=== PATIENT | female | born 2005 | race Caucasian/White ===

== ENCOUNTER 2025-06-30 20:24 | Emergency (ER) | payer OTHER, SELFPAY ==
[2025-06-30 20:28] VITALS: BP 113/63
[2025-06-30 20:36] VITALS: BMI 20.8
--- NOTE | 2025-06-30 21:10 | ED.GENMED ---
History of Present Illness
General
Chief Complaint: DVT/Possible Blood Clot
Source: patient
Exam Limitations: none
Time Seen by Provider: 06/30/25 20:34
Nursing documentation reviewed up to this point in time: agreed with
History of Present Illness
History of Present Illness:
see MDM
Phy Exam
Physical Exam
Physical Exam:
GENERAL: Alert , in no apparent distress
EYE: pupils equal and reactive
NECK: Supple
ENT: o/p clr, mmm.
CARDIAC: Regular rate and rhythm . 2+ dp pulses
perfused feet
cap refill intact
LUNGS: Clear breath sounds bilaterally, no acute respiratory distress, no wheezes/rales/rhonchi
ABDOMEN: Soft, without focal tenderness, no r/g, no cvat, normal bowel sounds
NEUROLOGICAL: Alert and oriented, no focal neuro deficits
SKIN: Warm and dry, skin intact.
superficial vein slightly tender/promient; but not bulging that is located medial anlke
MUSCULOSKELETAL: No edema, well perfused. neg denis's sign
slightly swollen ankle vein
ankle joint nomral
painless ROM
normal compartments
notnender
full painless ROM
PSYCH: Normal and appropriate interaction.
Course
Orders/Labs/Results
Orders:
Orders
06/30/25 20:33
Venous Doppler Lwr Ext Left [US Periph Venous LOWER Ext LT] Urgent
Comment:
Reason For Exam: left leg swelling, long flght
06/30/25 22:19
Aspirin Chewable [Low Strength Aspirin] 81 mg PO NOW STA
Vital Signs
Initial and Last Documented VS:
Initial Vital Signs
Temp Pulse Resp BP Pulse Ox
36.8 C 61 16 113/63 100
06/30/25 20:28 06/30/25 20:28 06/30/25 20:28 06/30/25 20:28 06/30/25 20:28
Last Documented Vital Signs
Temp Pulse Resp BP Pulse Ox
36.8 C 61 16 113/63 100
06/30/25 20:28 06/30/25 20:28 06/30/25 20:28 06/30/25 20:28 06/30/25 21:11
MDM/Problems Addressed
Differential Diagnosis Includes:
see MDM
MDM/Problems Addressed:
Note:
CHIEF COMPLAINT(S)
Swelling and numbness in foot, with shooting pains in the leg.
HISTORY OF PRESENT ILLNESS
The patient, a female whose age was not provided, presents with concerns about numbness and swelling in her foot, which began after a flight to [facility] approximately two weeks ago on 06/19. During the flight, she wore compression stockings and
experienced numbness in her feet. Upon arrival, she noticed swelling and numbness around the ankles, especially over a nedial ankle vein, which she described as swollen and tender but she was still able to walk around and didn't pay much attention
to it. . Upon returning from [facility] about a week ago on 06/25, during which she did not wear compression stockings, she noted a worsening of the numbness when she got off the plane, feeling numb medially in the ankle region and into the calf on the
medial side. The patient visited a print inspector 2 days ago, who suggested the condition was likely not serious but recommended an ultrasound. Since today, the patient reports the onset of sharp, shooting pains in her leg, but she is still able to
exercise and walk around without difficulty.
These symptoms occur sporadically and are accompanied by random swelling. She notes that while the swelling can be observed, it sometimes subsides. The patient is concerned about a potential venous issue such as a deep vein thrombosis or
superficial thrombophlebitis. She is on an estrogen-containing medication for control and spironolactone.
PAST MEDICAL HISTORY
The patient takes spironolactone.
REVIEW OF SYSTEMS
- Neurological: Intermittent sharp, shooting pain in the leg; numbness and tingling in the foot.
- Cardiovascular: Swelling in the foot and around the vein.
- Musculoskeletal: No pain when bending over; mobility unaffected despite discomfort.
PHYSICAL EXAM
- Neurological: Asked to wiggle toes; able to push down and pull back without issues.
- Extremities: Warm and well-perfused without discoloration; no pain on ankle movement.
- Nursing notes reviewed and vital signs reviewed.
PLAN
The patient will undergo an ultrasound to rule out a clot as the cause of symptoms. There is consideration of a superficial vein issue, potentially a small clot in a superficial vein or a varicose vein. Treatment with warm compresses and low-dose
aspirin has been suggested, pending results. The patient has an ultrasound scheduled for Friday, and it is advised that the specific vein of concern be scanned.
DIFFERENTIAL DIAGNOSIS
The Differential Diagnosis includes, in no particular order and is not limited to:
1. Deep Vein Thrombosis
2. Superficial Thrombophlebitis
3. Nerve Entrapment Syndrome
4. Varicose Veins
5. Peripheral Neuropathy
6. Venous Insufficiency
7. Dermatitis due to Compression Stockings
8. Lymphedema
9. Venous Obstruction
10. Musculoskeletal Injury
19 y/o F
here with pain/numbness/swelling to L medial ankle region after long flgiths x 2
the patient's mother said it looked like a varicose vein was swollen medially that was sore initially afte rthe 1st long flight
they went to print inspector a few days ago but had trouble scheduling US to r/o DVT
pt is here requesting this as now she is having random shooting pains in that area as well
no skin changes
normal pulse
warm
no cp, sob
there is a small superficial vein that i believe it probably thrombosed; US pending
US neg
suspect small vein that is clotted or varicosed
warm compresses
baby asa x 3-5 days
*Pulse Oximetry
SaO2: 100
Oxygen Mode of Delivery: Room air
Patient hypoxic: no (100)
*Critical Care Note
Total Time (30-74mins, 75-104mins- exclusive of procedures): Not Applicable
ED Attending Note
-
Portions of this chart may have been created with voice recognition software.� Occasional wrong word or��sound alike� substitutions may have occurred due to the inherent limitations of voice recognition software.
Discharge Plan
Departure
Patient Disposition: Home (Routine Discharge)
Date of Disposition: 06/30/25
Time of Disposition: 22:17
Patient with high blood pressure during this ER visit?: No
Condition: Fair
Covid-19: Not Applicable
Discharge Problem:
Calf pain
Instructions: Varicose Veins (DC)
Referrals:
Doug Donaldson MD [Family Provider, Pediatrics] - Follow up in 5-7 days
Activity Restrictions/Additional Instructions:
Not sure the cause of your pain but it could be a superficial or varicose vein that is potentially mildly clotted. You can try baby aspirin and warm compresses for the next 3 to 5 days. The baby aspirin is once a day. Watch for worsening
tenderness, swelling, redness, foot drop, worsening numbness or tingling etc. and return to the ER immediately as needed. Otherwise hopefully this is a self-limiting
Interventions
Interventions:
*Risk Screen - Suicide Last Done: 06/30/25 20:29
*General Assessment Last Done: 06/30/25 20:36
*Neglect/Abuse Screening Last Done: 06/30/25 20:29
*ED- Fall Risk Assessment Last Done: 06/30/25 20:36
*ED COVID-19 Vaccine History Last Done: 06/30/25 20:36
*Nursing Disposition Last Done: 06/30/25 22:28
ED- Cardiac Assessment Last Done: 06/30/25 20:37
ED- Pulmonary Assessment Last Done: 06/30/25 20:37
ED-Peripheral Vascular Assessment Last Done: 06/30/25 20:38
ED-Skin Assessment Last Done: 06/30/25 20:37
Discharge Date and Time
Discharge Date/Time: 06/30/25 22:28
Print Language: [place]
[2025-06-30] MEDS: LOW STRENGTH ASPIRIN 81 MG PO (22:26)
== END 2025-06-30 22:28 | disposition home or self-care (01) ==
LOC: EMR 20:24
PROVIDERS: EMERGENCY PHYSICIAN Emergency Medicine; FAMILY PHYSICIAN Pediatrics
DX: M79.662 Pain in left lower leg (principal); R20.0 Anesthesia of skin; M25.472 Effusion, left ankle; M79.89 Other specified soft tissue disorders
CPT/HCPCS: 99284; 93971